=== PATIENT | female | born 1955 | race Caucasian/White ===

== ENCOUNTER → 2016-08-26 | Day surgery (SDC) | payer OTHER ==
--- NOTE | 2016-08-20 17:51 | MH ---
cc: TRACE CAMPOS DATE OF ADMISSION: 08/26/2016 ADMISSION DIAGNOSIS Chronic open angle glaucoma moderate both eyes. HISTORY OF PRESENT ILLNESS This 61-year-old white female is coming through [facility] for the purpose of an Argon laser trabeculoplasty of the left eye. She has a history of chronic open angle glaucoma which is not well-controlled on medication alone and she has therefore elected to have an Argon laser trabeculoplasty on the left eye at this time. PAST MEDICAL HISTORY 1. The patient has a history of thyroid problems. 2. Valdez's palsy. 3. Enlarged pituitary. 4. Kidney stones. 5. Ligament in the leg which was injured after a fall. PAST SURGICAL HISTORY: 1. Nasal surgery. 2. Partial hysterectomy. 3. Right arthroscopic surgery of the knee. ALLERGIES Environmental. DAILY MEDICATIONS 1. Thyroxine. 2. Nasal drops. 3. Cosopt eye drops twice a day in both eyes. 4. Alphagan P, 0.1% twice a day in both eyes. 5. Latanoprost eye drops at bed time in both eyes. SOCIAL HISTORY: Noncontributory FAMILY HISTORY: Positive for mother with cataracts. REVIEW OF SYSTEMS: Noncontributory OCULAR EXAMINATION: On ocular exam the patient's best corrected visual acuity is 20/20 in each eye. Visual kong have inferonasal constriction in the left eye to confrontation testing. Extraocular muscle exam reveals full versions with orthophoria at distance and near. Pupils are 3 mm equal, round, reactive to light without afferent defect. Anterior segment examination reveals deep anterior chamber angles, clear lens. Intraocular pressure is 60 in the right eye and 17 in the left by applanation tonometry. Dilated fundus exam revealed sharp disks with cup-to-disk ratio 0.3 in the right eye and 0.4 in the left. There is an epiretinal membrane in the macula of each eye. A posterior vitreous detachment is present in the left eye. 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 Vitreous floaters are noted in the left eye. On formal visual field testing, the patient has glaucoma arc defects are present and they are worsening. IMPRESSION Chronic open angle glaucoma moderate, both eyes, not controlled well with medication alone. PLAN: Argon laser trabeculoplasty of the left eye through [facility]. MD LASHAWN Cassidy /5:20 PM /5:42 PM
[~2016-08-26] MED LIST: ALPH0.1S EACH EYE; ASPI81TA82 PO; DORZ1SOL2 EACH EYE; DORZ1SOL2 OU; FLUOROMETHOLONE 0.25% OPHT SUSP 5 ML BTL ONE; HYPROMELLOSE 0.3 % OPTH GEL 10 GM (0.34 FL OZ) TUBE ONE; LATA0.00 EACH EYE; LATA0.002 EACH EYE; LEVO112T17 PO; LEVO150T7 PO; PERC10TA27 PO; PROPARACAINE HCL 0.5% OPHT SOLN 15 ML BTL ONE; TAMS0.4C67 PO; ZOFR4TAB3 SL
== END | disposition home or self-care (01) ==
LOC: CSDC 09:55
PROVIDERS: ATTEND Ophthalmology
DX: H40.1232 Low-tension glaucoma, bilateral, moderate stage (principal); E07.9 Disorder of thyroid, unspecified; G51.0 Bell's palsy; Z87.442 Personal history of urinary calculi

== ENCOUNTER → 2016-09-13 | Day surgery (SDC) | payer OTHER ==
--- NOTE | 2016-09-11 15:32 | MH ---
cc: Paresh RANGEL M.D. DATE OF ADMISSION: 09/13/2016 ADMITTING DIAGNOSIS: Torn medial meniscus left knee, now being admitted for arthroscopy left knee. HISTORY OF PRESENT ILLNESS This is a pleasant 61-year-old female who is being admitted today for arthroscopy left knee due to torn medial meniscus and chondromalacia. OTHER PAST HISTORY The patient has a history of arthritis and stomach ulcers and thyroid problems. CURRENT MEDICATIONS Thyroxine eyedrops and nose spray. REVIEW OF SYSTEMS Noncontributory. FAMILY HISTORY Noncontributory. SOCIAL HISTORY She does not smoke or drink. ALLERGIES POLLEN. . PHYSICAL EXAMINATION GENERAL: We find a 61-year-old female, well-developed, well-nourished, alert and oriented x3, complaining of pain in her left knee. VITAL SIGNS: Blood pressure 122/78, pulse 77 and regular, respirations 16, temperature 98.1, pulse oximetry 98% on room air. HEENT: Eyes PERRLA, EOMI. Ears, nose, mouth clear. NECK: Supple. LUNGS: Clear. HEART: Regular rate. ABDOMEN: Soft. Positive bowel sounds and nontender. EXTREMITIES: Reveal her left knee to be tender. She is neurovascularly intact to her toes. IMPRESSION AT THIS TIME Torn medial meniscus, left knee. PLAN Admission for arthroscopy left knee today. The patient given prescription for postoperative pain control in the office. JMD ANGELIKA Linder/ALMAZ /3:15 PM /3:18 PM
[~2016-09-13] VITALS: Ht 162.6 cm; Wt 97.4 kg
[~2016-09-13] MED LIST changes: +ACETAMINOPHEN/HYDROcodone 325 MG/5 MG TAB PO PRN; +BUPIVACAINE HCL PF 0.25% 30 ML VIAL ONE; +CHLORHEXIDINE GLUCONATE 4% SOLN 120 ML BTL TOP SCH; +DO NOT ADM ANY ANTICOAGULANT DRUGS XX PRN; -FLUOROMETHOLONE 0.25% OPHT SUSP 5 ML BTL ONE; -HYPROMELLOSE 0.3 % OPTH GEL 10 GM (0.34 FL OZ) TUBE ONE; +INSULIN HUMAN REGULAR 1,000 UNITS/10 ML VIAL SQ PRN; +KETOROLAC TROMETHAMINE 60 MG/2 ML (IM) VIAL IM ONE; +LACTATED RINGER'S 1000 ML INJ 1,000 ML IV ONE; +LACTATED RINGER'S 1000 ML IV SCH; +MEPERIDINE HCL 50 MG/ML VIAL IM PRN; +METOPROLOL TARTRATE 25 MG TAB PO PRN; +MIDAZOLAM HCL 2 MG/2 ML VIAL ONE; +ONDANSETRON HCL 4 MG/2 ML VIAL IV PUSH ONE; +ONDANSETRON ODT 4 MG TAB PO PRN; +PHENYLEPH/NS 1000 MCG/10 ML SYR IV ONE; -PROPARACAINE HCL 0.5% OPHT SOLN 15 ML BTL ONE; +PROPOFOL 200 MG/20 ML AMP IV ONE; +SODIUM CHLORID 0.9% 500 ML IV SCH; +ceFAZolin 2 GM PREMIX 50 ML IV SCH; +fentaNYL CITRATE 250 MCG/5 ML AMP ONE
[2016-09-13 07:59] VITALS: BP 142/92; PULSE 78; RESP 18; TEMP 97.8; O2SAT 99
[2016-09-13 08:09] LABS: BLOOD, URINE NEG (NEG); GLUCOSE,URINE NEG (NEG); KETONE, URINE NEG (NEG); NITRITE,URINE NEG (NEG); SQUAMOUS EPITHELIAL CELL URINE 1 /hpf (0-5); URINE COLOR YELLOW (YELLW/STRAW)
[2016-09-13 08:10] LABS: COMMENT (UR) CATH-CULT NOT IND; CULTURE IF INDICATED CATH CULTURE NOT IND
[2016-09-13 08:15] LABS: AUTOMATED NEUTROPHIL # 3.4 TH/MM3 (1.8-7.7); BASOPHIL % 0.6 % (0.0-2.0); EOSINOPHIL # 0.2 TH/MM3 (0-0.4); EOSINOPHIL % 2.6 % (0.0-4.0); HEMATOCRIT 41.5 % (35.0-46.0); HEMO FLAGS DIFF FINAL; LYMPH % 36.5 % (9.0-44.0); LYMPHOCYTE # 2.4 TH/MM3 (1.0-4.8); MEAN CELL VOLUME 86.2 FL (80.0-100.0); MEAN CORPUSCULAR HEMOGLOBIN 29.7 PG (27.0-34.0); MEAN CORPUSCULAR HGB CONC 34.4 % (32.0-36.0); MONO % 8.9 % (0.0-8.0); NEUT % 51.4 % (16.0-70.0); PLATELET COUNT 295 TH/MM3 (150-450); RED BLOOD COUNT 4.81 MIL/MM3 (4.00-5.30); RED CELL DISTRIBUTION WIDTH 14.3 % (11.6-17.2); WHITE BLOOD COUNT 6.7 TH/MM3 (4.0-11.0)
[2016-09-13 08:22] LABS: APTT (PATIENT) 25.2 SEC (24.3-30.1); INTERNATIONAL NORMALIZED RATIO 0.9 RATIO
[2016-09-13 08:46] LABS: ALKALINE PHOSPHATASE 105 U/L (45-117); ALT (GPT) 32 U/L (10-53); ANION GAP 8 MEQ/L (5-15); AST (GOT) 28 U/L (15-37); BICARBONATE 24.7 MEQ/L (21.0-32.0); BLOOD UREA NITROGEN 11 MG/DL (7-18); CHLORIDE 107 MEQ/L (98-107); GLOMERULAR FILTRATION RATE 82 ML/MIN (>89); POTASSIUM 3.8 MEQ/L (3.5-5.1); SODIUM (NA) 140 MEQ/L (136-145); TOTAL BILIRUBIN ADULT 0.4 MG/DL (0.2-1.0)
[2016-09-13 10:55] VITALS: PULSE 100
[2016-09-13 13:10] VITALS: BP 136/83; PULSE 80; RESP 16; TEMP 97; O2SAT 100
--- NOTE | 2016-09-13 17:10 | EKG ---
Date Performed: 09/13/2016 Time Performed: 08:01:49 PTAGE: 61 years EKG: Sinus rhythm Compared to prior tracing no significant change NORMAL ECG PREVIOUS TRACING : 01/23/2012 06.43 DOCTOR: Raudel Vega Interpretating Date/Time 09/13/2016 17:00:31
--- NOTE | 2016-09-14 17:19 | MP ---
cc: Paresh RANGEL DATE OF SURGERY 09/13/2016 PREOPERATIVE DIAGNOSIS Internal derangement left knee. POSTOPERATIVE DIAGNOSIS Torn posterior horn medial meniscus and chondromalacia all three compartments left knee SURGERY PERFORMED 1. Arthroscopy, 2. Excision of torn posterior horn medial meniscus 3. Chondroplasty medial and lateral femoral condyle and patellofemoral joint left knee. SURGEON Dr. Ernestine Rangel UNIX ANALYST GUERA Engel ANESTHESIA LMA PROCEDURE IN DETAIL The patient was brought to the operating room and placed on the operating room table in the supine position. After successful induction of general anesthesia, the patient's left leg was prepped and draped in the usual manner. The knee was then placed in a knee dorantes and tightened. Arthroscopic examination was then performed by making a stab wound over the proximal superior and medial aspect of the patellofemoral joint for insertion of the inflow cannula and fluid, followed by stab wounds over the medial and lateral joint margins respectively for insertion of the arthroscope, shaver and probe. Arthroscopic examination was then performed which revealed torn posterior horn medial meniscus removed using ArthroCare cutter shaver and probe to afford a smooth surface. The rest of the knee joint found to have grade 3 chondromalacia changes which were shaved using the ArthroCare system, both the medial lateral compartments, both the weightbearing surfaces of the femur and the tibia. The patellofemoral joint left alone. The anterior cruciate found to be intact. Large osteophyte at the insertion of the anterior cruciate into the tibia. The wound was irrigated copiously with lactated Ringer's solution. Excess fluid removed. 10 mL of 0.25% Marcaine plain. Inserted into knee joint. Skin approximated with interrupted 3-0 nylon suture. Wet and then dry dressing applied to wound followed by Xeroform gauze, sterile dressing and thigh-high Nino wrap. No tourniquet utilized. Estimated blood loss 5 mL. Sponge and suture count correct. The patient tolerated procedure well and left the operating room in satisfactory condition. MD ANGELIKA Goldman/ /10:54 AM /5:07 PM
== END | disposition home or self-care (01) ==
LOC: HSDC 06:54
PROVIDERS: ATTEND Surgery
DX: S83.242A Other tear of medial meniscus, current injury, left knee, initial encounter (principal); M94.262 Chondromalacia, left knee; Z01.810 Encounter for preprocedural cardiovascular examination; Z87.19 Personal history of other diseases of the digestive system
CPT/HCPCS: 01400; 29881; 80053; 81001; 85025; 85610; 85730; 93005; J0690; J1885; J2250; J2370; J2405; J3010; J7120

== ENCOUNTER → 2017-01-06 | Outpatient (CLI) | payer OTHER ==
--- NOTE | 2017-01-02 15:14 | MH ---
cc: TRACE CAMPOS DATE OF ADMISSION 01/06/2017 ADMISSION DIAGNOSIS Chronic open angle glaucoma. HISTORY OF PRESENT ILLNESS This 61-year-old white female is coming through [facility] for the purpose of an argon laser trabeculoplasty of the right eye. She has a history of chronic open angle glaucoma which is not fully controlled on medication alone and underwent argon laser trabeculoplasty of the left eye in July and did well postoperatively and is now coming through the [facility] for similar procedure in the right eye. PAST MEDICAL HISTORY The patient has a history of - 1. Thyroid problems. 2. Valdez's palsy. 3. Enlarged pituitary gland. 4. Allergies. 5. Kidney stones. 6. Ligament injury in her leg after a fall. SURGICAL HISTORY 1. Nasal surgery. 2. Partial hysterectomy. 3. Right arthroscopic knee surgery. 4. The above-mentioned argon laser trabeculoplasty in the left eye in July. DAILY MEDICATIONS 1. Thyroxine. 2. Nasal drops. 3. Cosopt twice a day in both eyes . 4. Alphagan P 0.1% twice a day in both eyes. 5. Latanoprost eye drops at bedtime in both eyes. ALLERGIES No known allergies. SOCIAL HISTORY Noncontributory. FAMILY HISTORY Positive for mother with cataract. REVIEW OF SYSTEMS Noncontributory. PHYSICAL EXAMINATION On ocular exam the patient's visual acuity with correction is 20/20 -2 in the right eye and 20/25 in the left. Visual kong have bilateral field defects consistent with chronic open angle glaucoma. Pupils are 3 mm, equal, round and reactive to light without afferent defect. Extraocular muscle exam reveals orthophoria at distance and near. Anterior segment examination reveals a deep anterior chamber angle with clear lens. Intraocular pressure is 14 in the right eye and 12 in the left eye by applanation tonometry. Dilated fundus exam revealed sharp disk with cup-to-disk ratio of 0.3 in the right eye and 0.4 in the left. Epiretinal membrane is present in the macula of each eye. A posterior vitreous detachment is present in the left eye. There is a nevus of the choroid superior to the macula in the left eye which is one disk diameter in size. Vitreous floaters are present in the left eye. IMPRESSION 1. Chronic open angle glaucoma, not fully controlled on medication alone. 2. Status post argon laser trabeculoplasty in the left eye, 3. Posterior vitreous detachment left eye. 4. Epiretinal membrane both eyes. 5. Choroidal nevus, left eye. PLAN The plan is argon laser trabeculoplasty of the right eye through [facility]. MD ALAN Cassidy/DAVID /12:26 PM /3:11 PM
[~2017-01-06] MED LIST changes: -ACETAMINOPHEN/HYDROcodone 325 MG/5 MG TAB PO PRN; -ASPI81TA82 PO; +BALANCED SALT SOLN OPHT IRRIG 15 ML BTL ONE; -BUPIVACAINE HCL PF 0.25% 30 ML VIAL ONE; -CHLORHEXIDINE GLUCONATE 4% SOLN 120 ML BTL TOP SCH; -DO NOT ADM ANY ANTICOAGULANT DRUGS XX PRN; -DORZ1SOL2 OU; +FLUOROMETHOLONE 0.25% OPHT SUSP 5 ML BTL ONE; +HYPROMELLOSE 0.3 % OPTH GEL 10 GM (0.34 FL OZ) TUBE ONE; -INSULIN HUMAN REGULAR 1,000 UNITS/10 ML VIAL SQ PRN; -KETOROLAC TROMETHAMINE 60 MG/2 ML (IM) VIAL IM ONE; -LACTATED RINGER'S 1000 ML INJ 1,000 ML IV ONE; -LACTATED RINGER'S 1000 ML IV SCH; -LATA0.00 EACH EYE; -LEVO112T17 PO; -MEPERIDINE HCL 50 MG/ML VIAL IM PRN; -METOPROLOL TARTRATE 25 MG TAB PO PRN; -MIDAZOLAM HCL 2 MG/2 ML VIAL ONE; -ONDANSETRON HCL 4 MG/2 ML VIAL IV PUSH ONE; -ONDANSETRON ODT 4 MG TAB PO PRN; -PERC10TA27 PO; -PHENYLEPH/NS 1000 MCG/10 ML SYR IV ONE; +PROPARACAINE HCL 0.5% OPHT SOLN 15 ML BTL ONE; -PROPOFOL 200 MG/20 ML AMP IV ONE; -SODIUM CHLORID 0.9% 500 ML IV SCH; -TAMS0.4C67 PO; -ZOFR4TAB3 SL; -ceFAZolin 2 GM PREMIX 50 ML IV SCH; -fentaNYL CITRATE 250 MCG/5 ML AMP ONE
--- NOTE | 2017-01-06 14:28 | MP ---
cc: TRACE CAMPOS DATE OF SURGERY: 01/06/2017 PREOPERATIVE DIAGNOSIS Chronic open angle glaucoma, right eye. POSTOPERATIVE DIAGNOSIS Chronic open angle glaucoma, right eye. OPERATION Argon laser trabeculoplasty, right eye. ANESTHESIA Topical. COMPLICATIONS None. INDICATIONS See history and physical previously dictated. PROCEDURE The patient arrived at [facility]. Blood pressure was 139/83, pulse 82, respirations 18. A drop of Alphagan P was instilled in the right eye and the patient was seated at the Argon laser. A drop of Ophthaine was instilled in the right eye and a single mirror Gonio lens was placed on the anterior surface of the right cornea. Argon laser trabeculoplasty was then carried out. 100 exposures were placed at the junction of the pigmented and nonpigmented trabecular meshwork. The exposure time was 0.1 second, spot size was 50 microns, power was 100 milliwatts. The patient tolerated the procedure well. A drop of Alphagan P was instilled in the eye. The patient was given a prescription for topical steroids to be used q.i.d. in the right eye postoperatively, and has an appointment for follow up on the first postoperative day in my office. The patient was given written postoperative instructions. The patient left the [facility] in satisfactory condition. MD ALAN Cassidy/ALMAZ /11:28 AM /2:18 PM .4
== END ==
LOC: PHSDC 09:26
PROVIDERS: ATTEND Ophthalmology
DX: H40.1110 Primary open-angle glaucoma, right eye, stage unspecified (principal); H43.812 Vitreous degeneration, left eye; D31.32 Benign neoplasm of left choroid; E23.6 Other disorders of pituitary gland; E07.9 Disorder of thyroid, unspecified